=== PATIENT | male | born 2000 | race Caucasian/White ===

== ENCOUNTER 2020-04-16 04:21 | Emergency (ER) | payer OTHER ==
[~2020-04-16] VITALS: Ht 190.5 cm; Wt 167.8 kg
[~2020-04-16 04:21] MED LIST: AMOXICILLIN 50500 MG PO; CIPROFLOXACIN500 M1 PO; IBUPROFEN 400400 M1 PO; IBUPROFEN 600600 M1 PO; MUCINEX TA600 MG/TA2 PO; NOHOMEMEDICATIONS; NORCO 5-325 TA1 EACH PO; PERCOCET 5-3251 EACH PO; TRAMADOL 50 MG50 MG PO
[2020-04-16] MEDS ORDERED: OMEPRAZOLE 20 M20 M1 PO ×2 (04:31→06:11)
[2020-04-16 04:44] LABS: ABSOLUTE BASOPHILS 0.1 thou/uL (0.0-0.2); ABSOLUTE EOSINOPHILS 0.1 thou/uL (0.0-0.7); ABSOLUTE MONOCYTES 0.7 thou/uL (0.0-1.2); ABSOLUTE NEUTROPHILS 6.6 thou/uL (1.6-8.1); BASOPHILS 0.5 %; EOSINOPHILS 1.3 %; HEMATOCRIT 45.9 % (42.0-52.0); HEMOGLOBIN 15.7 gm/dL (14.0-18.0); LYMPHOCYTES 28.6 %; MCH 29.4 pg (26.0-34.0); MCHC 34.1 g/dL (28.0-37.0); MONOCYTES 6.7 %; MPV 8.8 fl. (7.2-11.1); NUCLEATED RBCS 0 /100WBC; PLATELET COUNT* 266 thou/uL (150-400); POLYS 62.9 %; RBC 5.34 mil/uL (4.50-6.00); RDW-CV 13.8 % (10.5-14.5); WBC 10.5 thou/uL (4.0-11.0)
[2020-04-16 04:53] LABS: CALCIUM 8.6 mg/dL (8.5-10.1); POTASSIUM 3.7 mmol/L (3.5-5.1)
[2020-04-16 04:56] LABS: PROTIME 10.9 Seconds (9.20-11.50)
[2020-04-16 05:06] LABS: ALBUMIN 3.7 g/dL (3.4-5.0); TOTAL BILIRUBIN 0.5 mg/dL (<0.1-1.0); TOTAL PROTEIN 7.7 g/dL (6.4-8.2)
[2020-04-16] MEDS ORDERED: CARAFATE 1 GM TA1 GM PO (06:11)
[2020-04-16 06:23] VITALS: BP 136/76
--- NOTE | 2020-04-16 13:43 | EKG ---
[place] [address] ELECTROCARDIOGRAM REPORT Name: EDWARD GARLAND Room: [facility]#: [id number] Admission: 04/16/20 Attend Phys: Discharge: 04/16/20 Date of : [birth year] Date of Service: 04/16/20 0426 Report #: [id number] THIS REPORT FOR: //name// [facility] ED Test Date: 2020-04-16 Test Time: 04:26:59 Pat Name: EDWARD GARLAND Department: Room: Gender: Administrative Job Titles: ERIC : 2000 Requested By: Josie Jerez Order Number: [id number] MD: Tulio Campos Measurements Intervals [place] Rate: 101 P: 40 [place]: 145 QRS: 29 QRSD: 106 T: 35 QT: 347 QTc: 450 Interpretive Statements Sinus tachycardia No previous ECG available for comparison Electronically Signed On 04-16-2020 13:43:50 [employer] INSPECTOR by Tulio Campos [email or web address] <ELECTRONICALLY SIGNED> By: Tulio Campos MD, [facility] 04/16/20 1343 0426 5 Tulio Campos MD, FACC /EPI
== END 2020-04-16 06:24 | disposition home or self-care (01) ==
LOC: M.ERS 04:21
PROVIDERS: Personal Emergency Response Attendant
DX: R07.89 Other chest pain (principal); K21.9 Gastro-esophageal reflux disease without esophagitis; R06.02 Shortness of breath; Z20.822 Contact with and (suspected) exposure to COVID-19; Z79.899 Other long term (current) drug therapy